=== PATIENT | female | born 1940 | race African-American/Black ===

== ENCOUNTER 2019-05-22 08:22 | Emergency (ER) | payer MEDICARE ==
[~2019-05-22] VITALS: Ht 167.6 cm; Wt 81.0 kg
[~2019-05-22 08:22] MED LIST: BENA40TA9; CLOP75TA4; METF500T
[2019-05-22] MEDS ORDERED: IBUPROFEN 600MG TABLET PO ONE (17:00)
[2019-05-22] MEDS ORDERED: ACETAMINOPHEN 325MG TABLET PO ONE (18:15)
[2019-05-22 20:11] VITALS: BP 142/74
== END 2019-05-22 20:11 | disposition home or self-care (01) ==
LOC: ER 08:42
DX: E11.9 Type 2 diabetes mellitus without complications (principal); E78.00 Pure hypercholesterolemia, unspecified; I10 Essential (primary) hypertension; Z79.899 Other long term (current) drug therapy; S82.891A Other fracture of right lower leg, initial encounter for closed fracture; W18.39XA Other fall on same level, initial encounter; Y93.89 Activity, other specified; Y92.89 Other specified places as the place of occurrence of the external cause; Y99.8 Other external cause status
CPT/HCPCS: 29515; 73610; 99285

== ENCOUNTER 2019-10-14 03:13 | Inpatient (IN) | payer MEDICARE, OTHER ==
[~2019-10-14] VITALS: Ht 160 cm; Wt 65.8 kg
[2019-10-14 03:55] LABS: BASOPHILS % 0.7 % (0.0-2.0); HEMATOCRIT. 25.4 % (36.0-48.0); HEMOGLOBIN. 8.1 g/dL (12.0-16.0); MEAN CORPUSCULAR HEMOGLOBIN 26.3 pg (28.0-32.0); MEAN CORPUSCULAR VOLUME 82.7 fL (81.0-99.0); MEAN PLATELET VOLUME 8.2 fl (7.4-10.4); MONOCYTES % 12.6 % (2.0-8.0); NEUTROPHILS % 65.7 % (40.0-76.0); PLATELET 179 x1000/uL (130-400); RED BLOOD CELL COUNT 3.08 mill/uL (4.2-5.4); RED CELL DISTRIBUTION WIDTH 18.2 % (11.6-14.6)
[2019-10-14 03:56] LABS: CHLORIDE 112 mEq/L (98-107)
[2019-10-14 03:59] LABS: INR 1.1; PROTHROMBIN TIME 11.1 sec (9.6-11.0)
[2019-10-14] MEDS ORDERED: SODIUM CHLORIDE 0.9% 1,000 ML IV ONE (05:23)
[2019-10-14] MEDS ORDERED: ASPIRIN 325MG EC TABLET PO ONE (05:30)
[2019-10-14] MEDS ORDERED: ASPIRIN 300MG SUPP PR ONE (06:30)
[2019-10-14] MEDS ORDERED: DIPHENHYDRAMINE 50MG/ML VIAL IV PRN (08:45)
[2019-10-14] MEDS ORDERED: ENOXAPARIN 40MG/0.4ML SYR SUBCUT SCH ×2 (08:45→21:00)
[2019-10-14] MEDS ORDERED: CLONIDINE 0.1MG TABLET PO PRN (08:45)
[2019-10-14] MEDS ORDERED: ONDANSETRON HCL 4MG/2ML INJ IV PRN (08:45)
[2019-10-14] MEDS ORDERED: ACETAMINOPHEN 325MG TABLET PO PRN (08:45)
[2019-10-14] MEDS ORDERED: ENOXAPARIN 30MG/0.3ML SYR SUBCUT SCH ×2 (09:00→21:00)
[2019-10-14 09:40] LABS: PHOSPHORUS 3.6 mg/dL (2.5-4.9)
[2019-10-14 12:00] VITALS: BP 138/78
[2019-10-14 13:01] VITALS: BP 138/76
[2019-10-14] MEDS ORDERED: AMLODIPINE 5MG TABLET PO SCH (13:30)
[2019-10-14 16:00] VITALS: BP 144/58
[2019-10-14 16:31] LABS: TOTAL IRON BINDING CAPACITY 316 ug/dL (250-450)
[2019-10-14] MEDS ORDERED: DEXTROSE 50% WATER 50ML SYRINGE IV PRN (17:00)
[2019-10-14] MEDS: BLOOD SUGAR DIAGNOSTIC STRIP TEST SCH ×2 (17:11→21:37)
[2019-10-14] MEDS: INSULIN LISPRO 100 UNITS/ML SUBCUT SCH ×2 (17:16→21:00)
[2019-10-14] MEDS: NITROGLYCERIN OINT 1GM/INCH UDPKT TD SCH ×2 (18:02→21:30)
[2019-10-14 20:00] VITALS: BP 135/66
[2019-10-14] MEDS: ATORVASTATIN CALCIUM 40MG TABLET PO SCH (21:29)
[2019-10-14] MEDS: AMLODIPINE 5MG TABLET PO SCH (21:29)
[2019-10-14] MEDS: METOPROLOL TARTRATE 25MG TABLET PO SCH (21:29)
[2019-10-14 22:00] VITALS: BP 149/73
[2019-10-15] VITALS (10 sets, daily range): BP systolic 128–148; BP diastolic 54–79
[2019-10-15] MEDS: NITROGLYCERIN OINT 1GM/INCH UDPKT TD SCH ×3 (06:16→21:31)
[2019-10-15] MEDS: BLOOD SUGAR DIAGNOSTIC STRIP TEST SCH ×4 (06:16→21:40)
[2019-10-15 06:27] LABS: BASOPHILS % 0.4 % (0.0-2.0); EOSINOPHILS % 2.5 % (0.0-5.0); LYMPHOCYTES % 9.6 % (20.0-50.0); MEAN CORPUSCULAR HEMOGLOBIN 26.3 pg (28.0-32.0); MEAN CORPUSCULAR VOLUME 82.5 fL (81.0-99.0); MEAN PLATELET VOLUME 8.2 fl (7.4-10.4); NEUTROPHILS % 76.5 % (40.0-76.0); PLATELET 176 x1000/uL (130-400); RED BLOOD CELL COUNT 3.03 mill/uL (4.2-5.4); RED CELL DISTRIBUTION WIDTH 18.2 % (11.6-14.6)
[2019-10-15 06:54] LABS: CHLORIDE 111 mEq/L (98-107)
[2019-10-15 07:02] LABS: LDL CHOLESTEROL 51 mg/dL (5-100)
[2019-10-15 07:04] LABS: HDL CHOLESTEROL 38 mg/dL (40-59)
[2019-10-15] MEDS: INSULIN LISPRO 100 UNITS/ML SUBCUT SCH ×4 (07:20→21:00)
[2019-10-15] MEDS: SODIUM CHLORIDE 0.45% 1,000 ML IV SCH ×2 (08:06→21:30)
[2019-10-15] MEDS: METOPROLOL TARTRATE 25MG TABLET PO SCH ×2 (08:07→21:30)
[2019-10-15] MEDS: AMLODIPINE 5MG TABLET PO SCH ×2 (08:07→21:31)
[2019-10-15] MEDS ORDERED: ASPIRIN 81MG EC TABLET PO SCH (09:00)
[2019-10-15] MEDS ORDERED: FENTANYL CITRATE/PF 50MCG/ML 2ML VIAL ONE (09:53)
[2019-10-15] MEDS ORDERED: LIDOCAINE HCL 1% 20ML VIAL (Pyxis) INJ ONE (09:53)
[2019-10-15] MEDS ORDERED: IODIXANOL 320MG/ML 100 ML BOTTLE IV ONE ×2 (09:53→11:02)
[2019-10-15] MEDS ORDERED: MIDAZOLAM HCL 2 MG/2 ML VIAL ONE (09:53)
[2019-10-15] MEDS ORDERED: NITROGLYCERIN 50MCG/ML 10ML VIAL (CATH LAB) IV ONE (11:46)
[2019-10-15] MEDS ORDERED: NICARDIPINE 100MCG/ML 10ML VIAL (CATH LAB) IV ONE (11:46)
[2019-10-15] MEDS ORDERED: HEPARIN SODIUM 1,000 UNIT/1ML VIAL IV ONE (11:46)
[2019-10-15] MEDS ORDERED: CLOPIDOGREL 75MG TABLET ONE (11:47)
[2019-10-15] MEDS ORDERED: ASPIRIN 325MG EC TABLET PO ONE (11:47)
[2019-10-15] MEDS ORDERED: ONDANSETRON HCL 4MG/2ML INJ IV PRN (12:00)
[2019-10-15] MEDS ORDERED: ATROPINE SULFATE 1MG/10ML SYR IV PRN (12:00)
[2019-10-15] MEDS: IRON SUCROSE COMPLEX 100 MG/5 ML ML IV SCH (12:31)
[2019-10-15] MEDS ORDERED: ENOXAPARIN 60MG/0.6ML SYR SUBCUT SCH (14:00)
[2019-10-15] MEDS: ATORVASTATIN CALCIUM 40MG TABLET PO SCH (21:30)
[2019-10-15 21:37] LABS: ETHANOL BLOOD < 10 mg/dL
[2019-10-15 21:38] LABS: LDL CHOLESTEROL 43 mg/dL (5-100)
[2019-10-15 21:40] LABS: HDL CHOLESTEROL 37 mg/dL (40-59); T4 FREE 1.16 ng/dL (0.76-1.46)
[2019-10-15 21:46] LABS: FOLIC ACID (FOLATE) SERUM 13.4 ng/mL (>5.38)
[2019-10-16] VITALS (12 sets, daily range): BP systolic 116–144; BP diastolic 63–87
[2019-10-16] MEDS: NITROGLYCERIN OINT 1GM/INCH UDPKT TD SCH ×2 (06:21→20:23)
[2019-10-16] MEDS: BLOOD SUGAR DIAGNOSTIC STRIP TEST SCH ×4 (06:24→20:26)
[2019-10-16] MEDS: INSULIN LISPRO 100 UNITS/ML SUBCUT SCH ×4 (06:24→20:31)
[2019-10-16 06:44] LABS: BASOPHILS % 0.6 % (0.0-2.0); EOSINOPHILS % 3.5 % (0.0-5.0); HEMATOCRIT. 23.7 % (36.0-48.0); HEMOGLOBIN. 7.5 g/dL (12.0-16.0); LYMPHOCYTES % 8.6 % (20.0-50.0); MEAN CORPUSCULAR HEMOGLOBIN 26.3 pg (28.0-32.0); MEAN PLATELET VOLUME 8.1 fl (7.4-10.4); MONOCYTES % 14.5 % (2.0-8.0); NEUTROPHILS % 72.8 % (40.0-76.0); PLATELET 143 x1000/uL (130-400); RED BLOOD CELL COUNT 2.85 mill/uL (4.2-5.4); RED CELL DISTRIBUTION WIDTH 18.1 % (11.6-14.6)
[2019-10-16] MEDS: IRON SUCROSE COMPLEX 100 MG/5 ML ML IV SCH (09:30)
[2019-10-16] MEDS: METOPROLOL TARTRATE 25MG TABLET PO SCH ×2 (09:31→20:23)
[2019-10-16] MEDS: SODIUM CHLORIDE 0.45% 1,000 ML IV SCH ×2 (09:31→22:16)
[2019-10-16] MEDS: CLOPIDOGREL 75MG TABLET PO SCH (09:31)
[2019-10-16] MEDS: AMLODIPINE 5MG TABLET PO SCH ×2 (09:31→22:16)
[2019-10-16] MEDS: ASPIRIN 325MG TABLET PO SCH (09:32)
[2019-10-16 14:19] LABS: *AMPHETAMINES SCREEN URINE NEGATIVE (NEGATIVE); *BARBITURATES SCREEN URINE NEGATIVE (NEGATIVE); *BENZODIAZEPINES SCREEN URINE PRESUMTIVE POSITIVE (NEGATIVE); *COCAINE SCREEN URINE NEGATIVE (NEGATIVE); CANNABINOID URINE SCREEN NEGATIVE (NEGATIVE); METHADONE URINE SCREEN NEGATIVE (NEGATIVE); OPIATES URINE SCREEN NEGATIVE (NEGATIVE); PHENCYCLIDINE URINE SCREEN NEGATIVE (NEGATIVE)
[2019-10-16] MEDS: ATORVASTATIN CALCIUM 40MG TABLET PO SCH (20:23)
[2019-10-17] VITALS (15 sets, daily range): BP systolic 104–144; BP diastolic 41–78
[2019-10-17] MEDS: BLOOD SUGAR DIAGNOSTIC STRIP TEST SCH ×4 (05:42→21:39)
[2019-10-17] MEDS: INSULIN LISPRO 100 UNITS/ML SUBCUT SCH ×4 (07:20→21:00)
[2019-10-17 07:22] LABS: BASOPHILS % 0.8 % (0.0-2.0); EOSINOPHILS % 4.8 % (0.0-5.0); HEMATOCRIT. 26.1 % (36.0-48.0); HEMOGLOBIN. 8.3 g/dL (12.0-16.0); LYMPHOCYTES % 9.5 % (20.0-50.0); MEAN CORPUSCULAR HEMOGLOBIN 26.2 pg (28.0-32.0); MEAN CORPUSCULAR VOLUME 82.7 fL (81.0-99.0); MEAN PLATELET VOLUME 8.5 fl (7.4-10.4); MONOCYTES % 14.2 % (2.0-8.0); NEUTROPHILS % 70.7 % (40.0-76.0); PLATELET 167 x1000/uL (130-400); RED BLOOD CELL COUNT 3.16 mill/uL (4.2-5.4); RED CELL DISTRIBUTION WIDTH 18.4 % (11.6-14.6)
[2019-10-17] MEDS: NITROGLYCERIN OINT 1GM/INCH UDPKT TD SCH ×2 (08:23→20:27)
[2019-10-17] MEDS: ASPIRIN 325MG TABLET PO SCH (08:23)
[2019-10-17] MEDS: IRON SUCROSE COMPLEX 100 MG/5 ML ML IV SCH (08:23)
[2019-10-17] MEDS: CLOPIDOGREL 75MG TABLET PO SCH (08:24)
[2019-10-17] MEDS: AMLODIPINE 5MG TABLET PO SCH ×2 (08:24→21:39)
[2019-10-17] MEDS: METOPROLOL TARTRATE 25MG TABLET PO SCH ×2 (08:25→20:26)
[2019-10-17] MEDS: ACETAMINOPHEN 325MG TABLET PO PRN (08:34)
[2019-10-17] MEDS: SODIUM CHLORIDE 0.45% 1,000 ML IV SCH (09:57)
[2019-10-17] MEDS ORDERED: POTASSIUM CHLORIDE 20MEQ TABLET SR PO NR (10:00)
[2019-10-17] MEDS ORDERED: HYDROCODONE/ACETAMINOPHEN 5/325MG TABLET PO PRN (15:15)
[2019-10-17] MEDS: ATORVASTATIN CALCIUM 40MG TABLET PO SCH (20:26)
[2019-10-18] VITALS (13 sets, daily range): BP systolic 115–149; BP diastolic 51–77
[2019-10-18] MEDS: SODIUM CHLORIDE 0.45% 1,000 ML IV SCH ×2 (03:23→16:58)
[2019-10-18] MEDS: BLOOD SUGAR DIAGNOSTIC STRIP TEST SCH ×4 (05:27→20:11)
[2019-10-18 06:23] LABS: HEMATOCRIT. 23.1 % (36.0-48.0); HEMOGLOBIN. 7.5 g/dL (12.0-16.0); MEAN CORPUSCULAR HEMOGLOBIN 26.4 pg (28.0-32.0); MEAN CORPUSCULAR VOLUME 81.8 fL (81.0-99.0); MEAN PLATELET VOLUME 8.7 fl (7.4-10.4); PLATELET 157 x1000/uL (130-400); RED BLOOD CELL COUNT 2.82 mill/uL (4.2-5.4); RED CELL DISTRIBUTION WIDTH 18.2 % (11.6-14.6)
[2019-10-18] MEDS: INSULIN LISPRO 100 UNITS/ML SUBCUT SCH ×4 (07:57→21:58)
[2019-10-18] MEDS: METOPROLOL TARTRATE 25MG TABLET PO SCH ×2 (07:58→21:58)
[2019-10-18] MEDS: ASPIRIN 325MG TABLET PO SCH (07:59)
[2019-10-18] MEDS: ACETAMINOPHEN 325MG TABLET PO PRN (07:59)
[2019-10-18] MEDS: AMLODIPINE 5MG TABLET PO SCH ×2 (07:59→21:56)
[2019-10-18] MEDS: NITROGLYCERIN OINT 1GM/INCH UDPKT TD SCH ×2 (08:00→21:57)
[2019-10-18] MEDS: CLOPIDOGREL 75MG TABLET PO SCH (08:00)
[2019-10-18 15:27] LABS: HEMATOCRIT 25.5 % (36.0-48.0)
[2019-10-18] MEDS: ATORVASTATIN CALCIUM 40MG TABLET PO SCH (21:56)
[2019-10-19] VITALS (15 sets, daily range): BP systolic 92–147; BP diastolic 63–83
[2019-10-19] MEDS: SODIUM CHLORIDE 0.45% 1,000 ML IV SCH ×2 (00:36→11:34)
[2019-10-19] MEDS: BLOOD SUGAR DIAGNOSTIC STRIP TEST SCH ×3 (06:25→16:46)
[2019-10-19] MEDS: INSULIN LISPRO 100 UNITS/ML SUBCUT SCH ×3 (07:20→16:46)
[2019-10-19 07:23] LABS: HEMATOCRIT. 24.1 % (36.0-48.0); HEMOGLOBIN. 7.8 g/dL (12.0-16.0); MEAN CORPUSCULAR HEMOGLOBIN 26.6 pg (28.0-32.0); MEAN CORPUSCULAR VOLUME 82.3 fL (81.0-99.0); MEAN PLATELET VOLUME 8.4 fl (7.4-10.4); PLATELET 179 x1000/uL (130-400); RED BLOOD CELL COUNT 2.93 mill/uL (4.2-5.4); RED CELL DISTRIBUTION WIDTH 18.4 % (11.6-14.6)
[2019-10-19] MEDS: METOPROLOL TARTRATE 25MG TABLET PO SCH (08:21)
[2019-10-19] MEDS: CLOPIDOGREL 75MG TABLET PO SCH (08:21)
[2019-10-19] MEDS: AMLODIPINE 5MG TABLET PO SCH (08:21)
[2019-10-19] MEDS: NITROGLYCERIN OINT 1GM/INCH UDPKT TD SCH (08:24)
[2019-10-19] MEDS ORDERED: ASPIRIN 81MG EC TABLET PO SCH (09:00)
[2019-10-19] MEDS ORDERED: ISOSORBIDE MONONITRATE 30MG TABLET SR 24HR PO SCH (12:00)
[2019-10-19 12:35] LABS: PLATELET ESTIMATE NORMAL
[2019-10-19] MEDS ORDERED: METO25TA6 PO (13:41)
[2019-10-19] MEDS ORDERED: CLOP75TA4 MT (13:41)
[2019-10-19] MEDS ORDERED: ASPI-1497 MT (13:41)
[2019-10-19] MEDS ORDERED: ISOS20TA57 PO (13:41)
[2019-10-19] MEDS ORDERED: LIP40 MT (13:41)
[2019-10-19 17:56] LABS: PLATELET ESTIMATE NORMAL
== END 2019-10-19 17:44 | disposition home health service (06) | DRG 246 ==
LOC: ER 03:13 → 5WST 06:12 → EDBEDREQ 06:16 → EDBEDREQTM 06:16 → ENRESERV 11:14 → 3WST 19:53
PROVIDERS: ADMIT Internal Medicine; ATTEND Internal Medicine
PROC: 027034Z Dilation of Coronary Artery, One Artery with Drug-eluting Intraluminal Device, Percutaneous Approach (ICD-10-PCS; principal; 2019-10-15)
PROC: 4A023N7 Measurement of Cardiac Sampling and Pressure, Left Heart, Percutaneous Approach (ICD-10-PCS; 2019-10-15)
PROC: B2111ZZ Fluoroscopy of Multiple Coronary Arteries using Low Osmolar Contrast (ICD-10-PCS; 2019-10-15)
PROC: 30233N1 Transfusion of Nonautologous Red Blood Cells into Peripheral Vein, Percutaneous Approach (ICD-10-PCS; 2019-10-19)
DX: I21.4 Non-ST elevation (NSTEMI) myocardial infarction (principal); I63.9 Cerebral infarction, unspecified; I50.33 Acute on chronic diastolic (congestive) heart failure; I42.9 Cardiomyopathy, unspecified; I13.0 Hypertensive heart and chronic kidney disease with heart failure and stage 1 through stage 4 chronic kidney disease, or unspecified chronic kidney disease; R47.01 Aphasia; D50.9 Iron deficiency anemia, unspecified; E11.22 Type 2 diabetes mellitus with diabetic chronic kidney disease; E11.51 Type 2 diabetes mellitus with diabetic peripheral angiopathy without gangrene; F17.210 Nicotine dependence, cigarettes, uncomplicated; I25.119 Atherosclerotic heart disease of native coronary artery with unspecified angina pectoris; I70.0 Atherosclerosis of aorta; I87.2 Venous insufficiency (chronic) (peripheral); E87.6 Hypokalemia; I44.0 Atrioventricular block, first degree; R47.1 Dysarthria and anarthria; J44.9 Chronic obstructive pulmonary disease, unspecified; N18.2 Chronic kidney disease, stage 2 (mild); Z85.3 Personal history of malignant neoplasm of breast; Z86.718 Personal history of other venous thrombosis and embolism; Z86.73 Personal history of transient ischemic attack (TIA), and cerebral infarction without residual deficits; Z71.6 Tobacco abuse counseling; Z03.818 Encounter for observation for suspected exposure to other biological agents ruled out
CPT/HCPCS: 36415; 70544; 70553; 71045; 80048; 80053; 80061; 80305; 80320; 82270; 82550; 82553; 82607; 82728; 82746; 82962; 83036; 83540; 83550; 83735; 83880; 84100; 84439; 84443; 84481; 84484; 85014; 85018; 85025; 85347; 86850; 86900; 86920; 92928; 93005; 93306; 93458; 93880; 93970; 97112; 97116; 97162; 99285; C1725; C1760; C1769; C1874; C1887; C1893; J1644; J1650; J1815; J2250; J3010; J3490; P9016; Q9967; G0480; U0003-CS

== ENCOUNTER 2022-03-08 06:56 | Emergency (ER) | payer OTHER ==
[~2022-03-08] VITALS: Ht 167.6 cm; Wt 69.0 kg
[~2022-03-08 06:56] MED LIST changes: +ASPI-1497 MT; -BENA40TA9; +CLOP-31; +CLOP-31 MT; -CLOP75TA4; +ISOS20TA57 PO; +LIP40 MT; +METO25TA6 PO
[2022-03-08 07:45] VITALS: BP 67/41
[2022-03-08] MEDS ORDERED: SODIUM CHLORIDE 0.9% 1000ML BAG (SEPSIS BOLUS) IV ONE (07:45)
[2022-03-08] MEDS ORDERED: KETOROLAC 15MG/ML VIAL IV ONE (08:00)
[2022-03-08 08:36] LABS: BASOPHILS % 0.6 % (0.0-2.0); EOSINOPHILS % 2.2 % (0.0-5.0); HEMATOCRIT. 25.8 % (36.0-48.0); HEMOGLOBIN. 7.8 g/dL (12.0-16.0); LYMPHOCYTES % 12.6 % (20.0-50.0); MEAN CORPUSCULAR HEMOGLOBIN 25.8 pg (28.0-32.0); MEAN CORPUSCULAR VOLUME 84.9 fL (81.0-99.0); MEAN PLATELET VOLUME 8.3 fl (7.4-10.4); MONOCYTES % 3.9 % (2.0-8.0); NEUTROPHILS % 80.7 % (40.0-76.0); PLATELET 143 x1000/uL (130-400); RED BLOOD CELL COUNT 3.03 mill/uL (4.2-5.4); RED CELL DISTRIBUTION WIDTH 20.9 % (11.6-14.6)
[2022-03-08] MEDS ORDERED: NOREPINEPHRINE 8MG/250ML PMX 250 ML IV STA (08:38)
[2022-03-08 08:43] LABS: CHLORIDE 110 mEq/L (98-107)
[2022-03-08] MEDS ORDERED: VANCOMYCIN 1G PREMIX 200 ML IV ONE (08:45)
[2022-03-08] MEDS ORDERED: PIPERACILLIN/TAZ 3.375G PREMIX 50 ML IV ONE (08:45)
[2022-03-08 08:50] LABS: ETHANOL BLOOD < 10 mg/dL
[2022-03-08] MEDS ORDERED: NOREPINEPHRINE 8 MG in DEXTROSE 5% WATER 250 ML IV NR (09:15)
== END 2022-03-08 12:57 ==
LOC: ER 07:39 → EDBEDREQ 08:43 → EDBEDREQSVC 08:43 → EDBEDREQTM 08:43 → CANBEDREQ 10:06 → ER 12:57
DX: I46.9 Cardiac arrest, cause unspecified (principal); M25.551 Pain in right hip; E11.9 Type 2 diabetes mellitus without complications; I10 Essential (primary) hypertension; Z79.899 Other long term (current) drug therapy
CPT/HCPCS: 31500; 36415; 71045; 73502; 80053; 80320; 82962; 83605; 85025; 87040; 93005; 96361; 96374; 99285; J1885; J3490; J7030; J7060; G0480